=== PATIENT | female | born 1990 | race Caucasian/White ===

== ENCOUNTER 2022-04-01 01:26 | Emergency (ER) | payer BC ==
[~2022-04-01] VITALS: Ht 175.3 cm; Wt 59.0 kg
--- NOTE | 2022-04-01 01:45 | NUR ---
Patient c/o anxiety attack for over 1 week with intermitten SOB.
--- NOTE | 2022-04-01 02:08 | NUR ---
Dr. Barajas on bedside for MSE.
[2022-04-01] MEDS ORDERED: LORAZEPAM 0.5 MG TABLET PO ONE (02:15)
[2022-04-01] MEDS ORDERED: LORAZEPAM 1 MG TABLET ONE (02:18)
[2022-04-01 03:06] LABS: CREATININE 0.8 mg/dL (0.6-1.3); POTASSIUM 3.3 mmol/L (3.5-5.1)
[2022-04-01 03:11] LABS: MAGNESIUM 1.9 mg/dL (1.8-2.4)
[2022-04-01 03:12] LABS: BILIRUBIN,DIRECT 0.2 mg/dL (0.0-0.2); BILIRUBIN,TOTAL 0.7 mg/dL (0.2-1.0); TOTAL PROTEIN, SERUM 7.6 g/dL (6.4-8.2)
[2022-04-01 03:16] LABS: HEMATOCRIT 37.1 % (31.2-41.9); MEAN CORPUSCULAR HEMOGLOBIN 31.9 uug (24.7-32.8); MEAN CORPUSCULAR VOLUME 90.6 fL (75.5-95.3); PLATELET COUNT (AUTO) 200 K/uL (179-408)
[2022-04-01] MEDS ORDERED: LORA-259 PO (03:49)
--- NOTE | 2022-04-01 04:21 | NUR ---
Dr. Barajas on bedside.
[2022-04-01 04:40] VITALS: BP 139/88
--- NOTE | 2022-04-01 04:40 | NUR ---
Patient discharged to home in stable condition. Written and verbal after care instructions given. Patient verbalizes understanding of instructions. Stressed follow up or return to ER for worsening s/s. Patient ambulated fr the ER with steady gait. All belongings with patient.
== END 2022-04-01 04:41 | disposition home or self-care (01) ==
LOC: ER 01:42
DX: F45.8 Other somatoform disorders (principal); E87.6 Hypokalemia
CPT/HCPCS: 36415; 83735; 85025; A4663